=== PATIENT | female | born 1955 | race Caucasian/White ===

== ENCOUNTER → 2020-08-31 11:26 | Outpatient (CLI) | payer MEDICARE, SELFPAY ==
[2020-08-31] MEDS: COVID-19 VACC #1, MRNA(MOD) 100 MCG/0.5 ML VIAL IM (11:35)
== END ==
PROVIDERS: Visit Provider Internal Medicine
DX: Z23 Encounter for immunization (principal)
CPT/HCPCS: 0011A; 91301

== ENCOUNTER → 2020-09-28 12:26 | Outpatient (CLI) | payer MEDICARE, SELFPAY ==
[2020-09-28] MEDS: COVID-19 VACC #2, MRNA(MOD) 100 MCG/0.5 ML VIAL IM (12:29)
== END ==
PROVIDERS: Visit Provider Internal Medicine
DX: Z23 Encounter for immunization (principal)
CPT/HCPCS: 0012A; 91301

== ENCOUNTER → 2020-12-27 09:41 | Outpatient (CLI) | payer OTHER, SELFPAY | PROVIDERS: PCP Student in an Organized Health Care Education/Training Program; Referring Provider Student in an Organized Health Care Education/Training Program; Visit Provider Student in an Organized Health Care Education/Training Program | DX: M81.0 Age-related osteoporosis without current pathological fracture (principal); Z13.820 Encounter for screening for osteoporosis; Z78.0 Asymptomatic menopausal state; Z82.62 Family history of osteoporosis | CPT/HCPCS: 77080 ==

== ENCOUNTER → 2022-01-25 14:16 | Outpatient (CLI) | payer OTHER, SELFPAY | PROVIDERS: PCP Student in an Organized Health Care Education/Training Program; Visit Provider Nurse Practitioner Family | DX: N89.8 Other specified noninflammatory disorders of vagina (principal); R30.0 Dysuria | CPT/HCPCS: 87086; 87210 ==

== ENCOUNTER → 2022-03-20 18:45 | Outpatient (CLI) | payer OTHER, SELFPAY | PROVIDERS: PCP Student in an Organized Health Care Education/Training Program; Visit Provider Nurse Practitioner Family | DX: R30.0 Dysuria (principal) | CPT/HCPCS: 87077; 87086; 87186 ==

== ENCOUNTER → 2023-04-23 10:28 | Outpatient (CLI) | payer OTHER, SELFPAY ==
--- NOTE | 2023-04-23 | DI.RAD.S_ITS ---
Bone Density Report Name: BRUNO DUPREE Age: 67 Sex: Female Ethnicity: White Date of : 1955 Indication: postmenopausal osteoporosis; monitoring treatment; Referring Provider: ELIZABETH ZUNIGA Study: Bone densitometry was performed. Exam Date: April 23, 2023 Accession number: [id number] Bone Density: Region BMD T-score Z-score Classification AP Spine(L1, L2, L4) 1.025 -0.1 1.9 Normal Femoral Neck (Left) 0.561 -2.6 -0.9 Osteoporosis Total Hip (Left) 0.711 -1.9 -0.5 Osteopenia Femoral Neck (Right) 0.540 -2.8 -1.1 Osteoporosis Total Hip (Right) 0.703 -2.0 -0.5 Osteopenia Total Hip Mean 0.707 -2.0 -0.5 Osteopenia World Health Organization criteria for BMD impression classify patients as: Normal (T-score at or above -1.0), Osteopenia (T-score between -1.0 and -2.5), or Osteoporosis (T-score at or below -2.5). 10-year Fracture Risk: FRAX not reported because: Some T-score for Spine Total or Hip Total or Femoral Neck at or below -2.5 Treated for osteoporosis Previous Exams: -- Region Exam Age BMD T-score BMD Change BMD Change Date g/cm2 vs Baseline vs Previous -- AP Spine (L1-L2,L4) 04/23/2023 67 1.025 -0.1 0.103 (11.2%)# 0.103 (11.2%)# 12/27/2020 65 0.922 -1.0 Total Hip(Left) 04/23/2023 67 0.711 -1.9 0.085 (13.6%)# 0.085 (13.6%)# 12/27/2020 65 0.626 -2.6 Total Hip(Right) 04/23/2023 67 0.703 -2.0 0.095 (15.5%)# 0.095 (15.5%)# 12/27/2020 65 0.609 -2.7 -- *Denotes significance at 95% confidence level, LSC for AP Spine = 0.022 g/cm2, LSC for Total Hip = 0.027 g/cm2 # Denotes dissimilar scan types or analysis methods Impression: The patient has osteoporosis, based on the Right Femoral Neck T-score. No significant bone loss was observed. Discussion: PATIENT UNDER TREATMENT WITH NO SIGNIFICANT BMD LOSS SINCE LAST EXAM. In an untreated patient, BMD typically declines with age. A lack of decline or gain is usually a sign that treatment is efficacious and fracture risk is reduced. It is important to ask patients whether they are taking their medications and to encourage continued and appropriate compliance with their osteoporosis therapies to reduce fracture risk. It is also important to review their risk factors and encourage appropriate calcium and vitamin D intakes, exercise, fall prevention and other lifestyle measures. Follow-Up: Consider a repeat BMD and Vertebral Fracture Assessment (VFA) exam in 2 years or sooner if medically necessary, to reassess this patient's status. Reported by: JA GOLDBERG M.D. on 04/23/2023 11:04:00 AM.
== END ==
PROVIDERS: PCP Student in an Organized Health Care Education/Training Program; Referring Provider Student in an Organized Health Care Education/Training Program; Visit Provider Student in an Organized Health Care Education/Training Program
DX: M81.0 Age-related osteoporosis without current pathological fracture (principal); Z79.83 Long term (current) use of bisphosphonates
CPT/HCPCS: 77080

== ENCOUNTER 2024-10-01 07:03 | Emergency (ER) | payer MEDICARE, OTHER, SELFPAY ==
[2024-10-01] VITALS (10 sets, daily range): BP systolic 135–183; BP diastolic 72–89; PULSE 77–88; RESP 12–18; TEMP 36.9; O2SAT 93–99; BMI 27.3
[2024-10-01 07:50] LABS: Add Manual Diff / Slide Review NO; Basophils Absolute Auto 100 /uL (0-100); Basophils Percent Auto 0.8 % (0-2); Eosinophils Absolute Auto 100 /uL (0-450); Eosinophils Percent Auto 1.5 % (2-4); Hematocrit 43.6 % (36-46); Hemoglobin 14.7 g/dL (12.0-16.0); Lymphocytes Absolute Auto 1300 /uL (1100-4500); Lymphocytes Percent Auto 13.7 % (25-40); Mean Corpuscular HGB Conc 33.8 % (30-36); Mean Corpuscular Volume 91.8 fL (80-100); Monocytes Absolute Auto 400 /uL (0-900); Monocytes Percent Auto 3.9 % (3-14); Neutrophils Absolute Auto 7600 /uL (1500-7000); Neutrophils Percent Auto 80.1 % (50-75); Platelet Count 221 X10^3/uL (150-400); Red Blood Cell Count 4.75 X10^6/uL (4.0-5.2); Red Cell Distribution Width 12.8 % (11.6-14.8); White Blood Cell Count 9.5 X10^3/uL (4.5-11.0)
[2024-10-01 07:54] LABS: Alanine Aminotransferase 33 IU/L (<35); Albumin 4.7 g/dL (3.5-5.0); Albumin Globulin Ratio 1.6 (1.0-2.8); Alkaline Phosphatase 113 U/L (38-126); Aspartate Aminotransferase 35 IU/L (14-36); BUN Creatinine Ratio 23.2 (6-22); Bilirubin Total 0.7 mg/dL (0.2-1.3); Blood Urea Nitrogen 16 mg/dL (7-17); Calcium 10.2 mg/dL (8.4-10.2); Carbon Dioxide 25 mmol/L (22-32); Chloride 105 mmol/L (98-107); Estimated Glomerular Filt Rate > 60 mL/min (>60); Glucose 131 mg/dL (80-110); HEMOLYSIS < 15 (0-50); Lipase 299 U/L (23-300); Potassium 3.8 mmol/L (3.4-5.1); Sodium 138 mmol/L (137-145); Total Protein 7.7 g/dL (6.3-8.2)
--- NOTE | 2024-10-01 08:04 | PC.NURSE ---
declined nausea meds at this time
--- NOTE | 2024-10-01 08:20 | EKG_ITS ---
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
--- NOTE | 2024-10-01 08:34 | ED_ITS ---
HPI - Abdominal Pain General Chief Complaint: Abdominal Pain Stated Complaint: Severe abdominal pain since 3:30am Time Seen by Provider: 10/01/24 08:03 History of Present Illness HPI narrative: Patient is a 69-year-old female history of osteoporosis presenting today with lower abdominal pain. She reports it woke her up abruptly from her sleep at 3:30 a.m. this morning. She feels nauseous, reports he threw up once in the ED. No fever or chills. No painful frequent urination. Reports that she had a colonoscopy about 7 years ago which showed diverticulosis. But she has never had an episode of diverticulitis. She was passing gas. She has had 2 C sections but no other abdominal surgeries Related Data Home Medications Medication Instructions Recorded Confirmed alendronate 70 mg tablet (Fosamax) 70 mg PO QWEEK 01/25/22 03/20/22 estradiol 0.01% (0.1 mg/gram) 1 appful vaginal DAILY 01/25/22 03/20/22 vaginal cream (Estrace) Previous Rx's Medication Instructions Recorded phenazopyridine 200 mg tablet 200 mg PO TID 6 doses #6 tabs 03/20/22 (Pyridium) cefdinir 300 mg capsule 300 mg PO Q12H #14 caps 10/01/24 hydrocodone 5 mg-acetaminophen 325 1 tab PO Q6H PRN pain #10 tabs 10/01/24 mg tablet ondansetron 4 mg disintegrating 4 mg PO Q8H PRN nausea and 10/01/24 tablet vomiting #10 tabs tamsulosin 0.4 mg capsule (Flomax) 0.4 mg PO DAILY #7 caps 10/01/24 Allergies Allergy/AdvReac Type Severity Reaction Status Date / Time oxycodone Allergy Mild Rash Verified 03/20/22 18:49 Patient History Social History Smoking Status: Never smoker Smoking Status: Never smoker Exam Initial Vital Signs Initial Vital Signs: Vital Signs Temperature 98.5 F 10/01/24 07:24 Pulse Rate 79 10/01/24 07:24 Respiratory Rate 16 10/01/24 07:24 Blood Pressure 183/86 H 10/01/24 07:24 Pulse Oximetry 98 10/01/24 07:24 Oxygen Delivery Method Room Air 10/01/24 07:24 GENERAL: Alert 69-year-old female and in [no acute] distress. HEENT: Head atraumatic,EOMI, pupils reactive, face symmetric, [moist] mucous membranes CARDIOVASCULAR: Regular rate and rhythm without murmurs, rubs or gallops. RESPIRATORY: Breath sounds equal bilaterally, no wheezes rales or rhonchi. ABDOMEN: Soft, mild lower abdominal discomfort no guarding no rebound no distention : No CVA tenderness EXTREMITIES: Normal range of motion, no clubbing or edema. Neurovascularly intact NEUROLOGICAL: Alert and oriented x4.Normal gait and speech. SKIN: Warm, dry, no laceration, no petechiae, no rashes or lesions. Course Orders Ordered: ED Orders 10/01/24 07:28 EKG-12 Lead Stat 10/01/24 07:35 Complete Blood Count AUTO DIFF Stat Comprehensive Metabolic Panel Stat Lipase Stat 10/01/24 08:12 Urine Culture Stat Urine Microscopic Stat 10/01/24 08:39 CT abdomen pelvis w con Stat Discontinued Medications Acetaminophen (Acetaminophen 325 Mg Tablet) 650 mg PO NOW ONE Stop: 10/01/24 10:35 Last Admin: 10/01/24 10:38 Dose: 650 mg Documented By: Ceftriaxone Sodium 1,000 mg/ (Sodium Chloride) 100 mls @ 200 mls/hr IV NOW ONE Stop: 10/01/24 10:22 Last Infusion: 10/01/24 11:22 Dose: Infused Documented By: Admin: 10/01/24 10:35 Dose: 200 mls/hr Documented By: Ketorolac Tromethamine (Ketorolac 30 Mg/Ml Vial) 15 mg IV NOW ONE Stop: 10/01/24 08:40 Last Admin: 10/01/24 08:48 Dose: 15 mg Documented By: GUDELIA Ondansetron HCl (Ondansetron 4 Mg/2 Ml Inj) 4 mg IV NOW PRN PRN Reason: Nausea And Vomiting Last Admin: 10/01/24 08:50 Dose: 4 mg Documented By: GUDELIA Ondansetron HCl (Ondansetron 4 Mg Odt) 4 mg PO NOW PRN PRN Reason: Nausea And Vomiting Vital Signs Vital signs: Vital Signs - 8 hr 10/01/24 08:00 10/01/24 08:00 10/01/24 08:39 Pulse Rate 79 Respiratory Rate 18 Blood Pressure 157/77 H 167/81 H Pulse Oximetry 99 Oxygen Delivery Method Room Air 10/01/24 08:39 10/01/24 09:05 10/01/24 09:06 Pulse Rate 79 81 80 Respiratory Rate 14 12 Blood Pressure Pulse Oximetry 96 98 Oxygen Delivery Method 10/01/24 09:06 10/01/24 09:30 10/01/24 09:30 Pulse Rate 81 Respiratory Rate 13 Blood Pressure 161/77 H 150/77 H Pulse Oximetry 93 Oxygen Delivery Method 10/01/24 10:00 10/01/24 10:00 10/01/24 10:30 Pulse Rate 80 81 Respiratory Rate 14 13 Blood Pressure 146/72 H Pulse Oximetry 97 96 Oxygen Delivery Method 10/01/24 10:30 10/01/24 11:00 10/01/24 11:00 Pulse Rate 88 Respiratory Rate 14 Blood Pressure 145/81 H 135/74 Pulse Oximetry 95 Oxygen Delivery Method MDM - Abdominal Pain Lab Data 10/01/24 07:35 10/01/24 07:35 Labs: Lab Results 10/01/24 10/01/24 Range/Units 07:35 08:12 WBC 9.5 (4.5-11.0) X10^3/uL RBC 4.75 (4.0-5.2) X10^6/uL Hgb 14.7 (12.0-16.0) g/dL Hct 43.6 (36-46) % MCV 91.8 (80-100) fL MCH 31.0 (26-34) PG MCHC 33.8 (30-36) % RDW 12.8 (11.6-14.8) % Plt Count 221 (150-400) X10^3/uL Neut % (Auto) 80.1 H (50-75) % Lymph % (Auto) 13.7 L (25-40) % [place] % (Auto) 3.9 (3-14) % Eos % (Auto) 1.5 L (2-4) % Baso % (Auto) 0.8 (0-2) % Neut # (Auto) 7600 H (3272-6242) /uL Lymph # (Auto) 1300 (4844-9975) /uL [place] # (Auto) 400 (0-900) /uL Eos # (Auto) 100 (0-450) /uL Baso # (Auto) 100 (0-100) /uL Sodium 138 (137-145) mmol/L Potassium 3.8 (3.4-5.1) mmol/L Chloride 105 (98-107) mmol/L Carbon Dioxide 25 (22-32) mmol/L BUN 16 (7-17) mg/dL Creatinine 0.69 (0.52-1.04) mg/dL Estimated GFR > 60 (>60) mL/min BUN/Creatinine Ratio 23.2 H (6-22) Glucose 131 H (80-110) mg/dL Calcium 10.2 (8.4-10.2) mg/dL Total Bilirubin 0.7 (0.2-1.3) mg/dL AST 35 (14-36) IU/L ALT 33 (<35) IU/L Alkaline Phosphatase 113 (38-126) U/L Total Protein 7.7 (6.3-8.2) g/dL Albumin 4.7 (3.5-5.0) g/dL Globulin 3.0 (1.7-4.1) g/dL Albumin/Globulin Ratio 1.6 (1.0-2.8) Lipase 299 (23-300) U/L Urine RBC >100/hpf H (0-5/HPF) Urine WBC 10-30/hpf H (0-5/HPF) Ur Squamous Epith Cells 10-30 /hpf H (0-5/HPF) Urine Bacteria Moderate (10-30) H (None) Ur Culture Indicated? Specimen cultured Vol Urine Centrifuged 10ml (spun) Point of care testing: Urine Dip Bedside Urine Glucose Negative Bedside Urine Bilirubin - Negative Bedside Urine Ketone +/- 5 Urine Specific [place] 1.025 Bedside Urine Occult Blood +++ Bedside Urine pH 6.0 Bedside Urine Protein +/- 15 Bedside Urine Urobilinogen - Negative Bedside Urine Nitrite - Negative Bedside Urine Leukocytes +++ 500 Esterase ECG Data Attestation: I personally reviewed and interpreted this ECG as follows: Prior ECG tracings: not available for review Interpretation: Normal sinus rhythm rate 66 [place] interval 158 QRS [address] changes MDM Narrative Medical decision making narrative: Patient is a 69-year-old female presenting today with lower abdominal discomfort. Started abruptly This evening. Blood work has been reviewed she has been leukocytosis no anemia, electrolytes within normal limits no elevation of bilirubin or liver enzymes or lipase Urinalysis is positive for hematuria and leukocytes CT shows 6 mm obstructing stone within the left mid ureter associated with left hydroureter and hydronephrosis perinephric fat stranding Urinalysis is positive for squamous cell leukocytes hematuria, bacteria negative for nitrates Patient initially presenting with some lower abdominal discomfort but now in the ED it is more on the left side. She was found to have left nephrolithiasis. She has no leukocytosis or fever. She was not a diabetic. Urine is questionable for UTI but does appear to be a dirty catch nonetheless she was given 1 dose of IV Rocephin here in the ED. She was put on antibiotics. Instructed to follow up with Urology and strict return precautions. Differential diagnosis nephrolithiasis diverticulitis bowel obstruction Discharge Plan Departure Patient Disposition: Home Clinical Impression: Kidney stones, Acute UTI Instructions: DI for Kidney Stones Activity Restrictions/Additional Instructions: *You have been diagnosed with kidney stone and UTI *What to do: At this time you have a 6 mm stone on the left side. You may or may not pass it. He was strongly recommended that you follow-up with urology. Please call them on Thursday to schedule an appointment. *Continue to take medications as directed Motrin 600 mg every 6 hours for [id number] pain Cefdinir 300 mg twice a day for 7 [place] 1 tablet every 6 hours if needed for severe pain Zofran 4 mg every 8 hours for nausea vomiting Flomax 0.4 mg daily to help pass kidney stone *Follow up with your primary care provider in 2-3 days or call [phone] Miller or Dr. Rodas, call Thursday morning *Return to ER if you should have persistent vomiting persistent pain fever greater than 100.4 or any new, worsening or concerning symptoms CONTROLLED SUBSTANCE DISCHARGE (Narcotoic/benzodiazepine/Flexeril/Phenergan) 1. You have been prescribed narcotic medications, it does have acetaminophen/Tylenol/paracetamol in it, DO NOT TAKE MORE THAN 4,00mg in 24 hours of Tylenol. TRAMADOL DOES NOT CONTAIN TYLENOL 2. Please understand that we cannot provide further refills of narcotics, benzodiazepines or controlled substances through the ED and her pain management will need to be through your provider. 3. While on these medications you cannot drive or operate heavy machinery. 4. You cannot sign legal documents or perform any duties such as this. 5. As long as you're taking opiate pain medications he should also be taking a stool softener such as Colace, Dulcolax, MiraLAX or prune juice, to help avoid constipation. Prescriptions: New hydrocodone-acetaminophen 5-325 mg tablet 1 tab PO Q6H PRN (Reason: pain) Qty: 10 0RF tamsulosin [Flomax] 0.4 mg capsule 0.4 mg PO DAILY Qty: 7 0RF Rx Instructions: administer 30 minutes after same meal each day; swallow whole with liquid; do not crush/chew/dissolve/open ondansetron 4 mg tablet,disintegrating 4 mg PO Q8H PRN (Reason: nausea and vomiting) Qty: 10 0RF cefdinir 300 mg capsule 300 mg PO Q12H Qty: 14 0RF No Action estradiol [Estrace] 0.01 % (0.1 mg/gram) cream 1 appful vaginal DAILY Rx Instructions: for 14 days alendronate [Fosamax] 70 mg tablet 70 mg PO QWEEK phenazopyridine [Pyridium] 200 mg tablet 200 mg PO TID 0 Days Qty: 6 0RF Referrals: Zena Maradiaga MD [Primary Care Provider] - Stand Alone Forms: Patient Portal/API/Survey
[2024-10-01 08:39] LABS: Bacteria Urine Moderate (10-30); Culture Indicated Urine Specimen Cultured; RBC Urine >100/HPF (0-5/HPF); Squamous Epithelial Cell Urine 10-30 /HPF (0-5/HPF); Urine Volume 10mL (spun); WBC Urine 10-30/HPF (0-5/HPF)
--- NOTE | 2024-10-01 08:39 | DI.CT.S_ITS ---
PROCEDURE: CT ABDOMEN PELVIS W CON INDICATIONS: lower ab pain and nausea TECHNIQUE: After the administration of intravenous contrast, axial sections acquired from the lung bases to the pubic symphysis. Coronal and sagittal reformats were performed. For radiation dose reduction, the following was used: automated exposure control, adjustment of mA and/or kV according to patient size. COMPARISON: None. FINDINGS: Image quality: Diagnostic. Lower Chest: A small hiatal hernia is incidentally noted. ABDOMEN: Liver: No solid mass. Simple liver cysts are seen. Gallbladder: No radiopaque gallstones or wall thickening. Biliary ducts: No biliary dilation. Pancreas: No ductal dilation. Spleen: Size is within normal limits. Adrenal Glands: No adrenal nodules. Kidneys and Ureters: There is an obstructing stone seen within the left mid ureter, as on series 2 image 72 and on series 3, image 44, measuring 6 mm craniocaudal and measuring 450 Hounsfield units. There is associated moderate to severe left-sided hydronephrosis and moderate hydroureter. There is a delayed nephrogram seen on the left. Moderate left perinephric fat stranding can be seen. Several nonobstructing kidney stones are seen, measuring up to 4 mm on the right and measuring up to 10 mm and 800 Hounsfield units on the left. Stomach and Bowel: Normal colonic caliber, without significant wall thickening. No dilated loops of small bowel are seen. A normal appendix is noted. Peritoneum: No abnormal intraperitoneal fluid. No free air. Ventral Wall: No significant ventral hernia. Abdominal Nodes: No retroperitoneal or mesenteric adenopathy by size criteria. Vessels: Aorta and inferior vena cava are normal in size. PELVIS: Pelvic Organs: No adnexal masses are seen on either side. Bladder: Moderate generalized bladder wall thickening can be seen. The bladder is incompletely distended. Pelvic Nodes: No enlarged lymph nodes. Miscellaneous: No inguinal hernias are seen. Bones: No aggressive osseous abnormality. There is a remote L1 compression deformity. Mild retrolisthesis can be seen at L1-L2. Mild anterolisthesis is seen at L4-L5. There is at least moderate disc space narrowing seen at L5-S1. Lower lumbar spine facet arthropathy is seen. IMPRESSION: 6 mm obstructing stone within the left mid ureter, with associated left-sided hydroureter, hydronephrosis, perinephric fat stranding, and a delayed nephrogram. Nonobstructing bilateral renal stones are seen. There is moderate generalized bladder wall thickening. Please consider superimposed UTI. Normal appendix. Additional findings: Small hiatal hernia Remote L1 compression deformity Multifocal lumbar spine degenerative change Dictated by: Gopi Botello M.D. on 10/01/2024 at 8:38 Approved by: Gopi Botello M.D. on 10/01/2024 at 8:42
[2024-10-01] MEDS: KETOROLAC 30 MG/ML VIAL 15 MG IV (08:48)
[2024-10-01] MEDS: ONDANSETRON 4 MG/2 ML INJ IV (08:50)
--- NOTE | 2024-10-01 09:00 | PC.NURSE ---
Assumed cares from LUBA [place]. Pt lying back in [facility]. Discussed plan of care, understands.
[2024-10-01] MEDS: cefTRIAXone 1,000 MG in SODIUM CHLORIDE 0.9% 100 ML 200 MG IV (10:35)
[2024-10-01] MEDS: ACETAMINOPHEN 325 MG TABLET 650 MG PO (10:38)
== END 2024-10-01 11:24 | disposition home or self-care (01) ==
PROVIDERS: Emergency Provider Emergency Medicine; PCP Student in an Organized Health Care Education/Training Program
DX: N20.0 Calculus of kidney (principal); N39.0 Urinary tract infection, site not specified
CPT/HCPCS: 36415; 74177; 80053; 81003; 81015; 83690; 85025; 87086; 93005; 93010; 96365; 96375; 99284; J0696; J1885; J2405; Q9967

== ENCOUNTER 2024-10-02 11:50 | Emergency (ER) | payer MEDICARE, OTHER, SELFPAY ==
[2024-10-02] VITALS (19 sets, daily range): BP systolic 110–142; BP diastolic 51–77; PULSE 83–120; RESP 11–24; TEMP 37–39.5; O2SAT 93–99; BMI 27.3
--- NOTE | 2024-10-02 12:32 | DI.RAD.S_ITS ---
PROCEDURE: XR CHEST 1V INDICATIONS: suspected sepsis TECHNIQUE: One view of the chest was acquired. COMPARISON: None. FINDINGS AND IMPRESSION: No dense airspace disease on this single view study. No pleural effusions. Normal heart size. Degenerative osseous changes. Dictated by: Austen Lopez M.D. on 10/02/2024 at 13:15 Approved by: Austen Lopez M.D. on 10/02/2024 at 13:16
--- NOTE | 2024-10-02 12:41 | EKG_ITS ---
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
[2024-10-02 13:27] LABS: Add Manual Diff / Slide Review NO; Basophils Absolute Auto 0 /uL (0-100); Basophils Percent Auto 0.3 % (0-2); Eosinophils Absolute Auto 0 /uL (0-450); Hematocrit 39.1 % (36-46); Hemoglobin 13.3 g/dL (12.0-16.0); Lymphocytes Absolute Auto 300 /uL (1100-4500); Lymphocytes Percent Auto 2.3 % (25-40); Mean Corpuscular HGB Conc 34.2 % (30-36); Mean Corpuscular Hemoglobin 31.1 PG (26-34); Monocytes Absolute Auto 400 /uL (0-900); Monocytes Percent Auto 2.7 % (3-14); Neutrophils Absolute Auto 13800 /uL (1500-7000); Neutrophils Percent Auto 94.7 % (50-75); Platelet Count 151 X10^3/uL (150-400); Red Blood Cell Count 4.29 X10^6/uL (4.0-5.2); Red Cell Distribution Width 12.9 % (11.6-14.8); White Blood Cell Count 14.6 X10^3/uL (4.5-11.0)
[2024-10-02 13:31] LABS: Prothrombin Time 11.4 SECONDS (9.4-12.5)
[2024-10-02 13:34] LABS: PTT Partial Thromboplastin Tim 28 SECONDS (25.1-36.5)
[2024-10-02 13:36] LABS: Alanine Aminotransferase 28 IU/L (<35); Albumin 4.1 g/dL (3.5-5.0); Albumin Globulin Ratio 1.5 (1.0-2.8); Alkaline Phosphatase 90 U/L (38-126); Aspartate Aminotransferase 37 IU/L (14-36); BUN Creatinine Ratio 14.8 (6-22); Bilirubin Total 1.1 mg/dL (0.2-1.3); Blood Urea Nitrogen 18 mg/dL (7-17); Calcium 9.7 mg/dL (8.4-10.2); Carbon Dioxide 23 mmol/L (22-32); Chloride 100 mmol/L (98-107); Estimated Glomerular Filt Rate 48 mL/min (>60); Globulin 2.8 g/dL (1.7-4.1); Glucose 131 mg/dL (80-110); HEMOLYSIS < 15 (0-50); Lipase 66 U/L (23-300); Sodium 131 mmol/L (137-145); Total Protein 6.9 g/dL (6.3-8.2)
[2024-10-02] MEDS: ACETAMINOPHEN 325 MG TABLET 975 MG PO (13:38)
[2024-10-02] MEDS: SODIUM CHLORIDE 0.9% 1,000 ML 1000 ML IV (13:38)
[2024-10-02 13:45] LABS: Bacteria Urine Few (2-10); Culture Indicated Urine Cult Not Indicated; RBC Urine 5-10/HPF (0-5/HPF); Squamous Epithelial Cell Urine 1-5 /HPF (0-5/HPF); Urine Volume 10mL (spun); WBC Urine 1-5/HPF (0-5/HPF)
[2024-10-02 13:47] LABS: Lactate (Lactic Acid) 1.2 mmol/L (0.7-2.1)
[2024-10-02 13:52] LABS: Procalcitonin 7.22 ng/mL (<0.5)
--- NOTE | 2024-10-02 16:25 | ED.SEPSIS ---
HPI - Sepsis Evaluation Sepsis Screen: Meets SIRS Criteria Sepsis Infection Criteria Present: None Narrative: A 69-year-old female seen yesterday with lower abdominal pain. CT was performed with obstructive stone noted. CT report is as below. [address] [address] [address] Scan Report Signed Patient: Sil Malagon MR#: [id number] : 1955 Acct:[id number] Age/Sex: 69 / F Date of Service: 10/01/24 Loc: ED Accession Number: [id number] Procedure: CT abdomen pelvis w con Ordering Provider: Indu Vargas D.O. PROCEDURE: CT ABDOMEN PELVIS W CON INDICATIONS: lower ab pain and nausea TECHNIQUE: After the administration of intravenous contrast, axial sections acquired from the lung bases to the pubic symphysis. Coronal and sagittal reformats were performed. For radiation dose reduction, the following was used: automated exposure control, adjustment of mA and/or kV according to patient size. COMPARISON: None. FINDINGS: Image quality: Diagnostic. Lower Chest: A small hiatal hernia is incidentally noted. ABDOMEN: Liver: No solid mass. Simple liver cysts are seen. Gallbladder: No radiopaque gallstones or wall thickening. Biliary ducts: No biliary dilation. Pancreas: No ductal dilation. Spleen: Size is within normal limits. Adrenal Glands: No adrenal nodules. Kidneys and Ureters: There is an obstructing stone seen within the left mid ureter, as on series 2 image 72 and on series 3, image 44, measuring 6 mm craniocaudal and measuring 450 Hounsfield units. There is associated moderate to severe left-sided hydronephrosis and moderate hydroureter. There is a delayed nephrogram seen on the left. Moderate left perinephric fat stranding can be seen. Several nonobstructing kidney stones are seen, measuring up to 4 mm on the right and measuring up to 10 mm and 800 Hounsfield units on the left. Stomach and Bowel: Normal colonic caliber, without significant wall thickening. No dilated loops of small bowel are seen. A normal appendix is noted. Peritoneum: No abnormal intraperitoneal fluid. No free air. Ventral Wall: No significant ventral hernia. Abdominal Nodes: No retroperitoneal or mesenteric adenopathy by size criteria. Vessels: Aorta and inferior vena cava are normal in size. PELVIS: Pelvic Organs: No adnexal masses are seen on either side. Bladder: Moderate generalized bladder wall thickening can be seen. The bladder is incompletely distended. Pelvic Nodes: No enlarged lymph nodes. Miscellaneous: No inguinal hernias are seen. Bones: No aggressive osseous abnormality. There is a remote L1 compression deformity. Mild retrolisthesis can be seen at L1-L2. Mild anterolisthesis is seen at L4-L5. There is at least moderate disc space narrowing seen at L5-S1. Lower lumbar spine facet arthropathy is seen. IMPRESSION: 6 mm obstructing stone within the left mid ureter, with associated left-sided hydroureter, hydronephrosis, perinephric fat stranding, and a delayed nephrogram. Nonobstructing bilateral renal stones are seen. There is moderate generalized bladder wall thickening. Please consider superimposed UTI. Normal appendix. Additional findings: Small hiatal hernia Remote L1 compression deformity Multifocal lumbar spine degenerative change Dictated by: Gopi Botello M.D. on 10/01/2024 at 8:38 Approved by: Gopi Botello M.D. on 10/01/2024 at 8:42 Patient History Social History Smoking Status: Never smoker Smoking Status: Never smoker Exam Initial Vital Signs Initial Vital Signs: Vital Signs Temperature 103.1 F H 10/02/24 12:23 Pulse Rate 120 H 10/02/24 12:23 Respiratory Rate 19 10/02/24 12:23 Blood Pressure 131/75 10/02/24 12:23 Pulse Oximetry 97 10/02/24 12:23 Oxygen Delivery Method Room Air 10/02/24 12:23 Course Orders Ordered: ED Orders 10/02/24 12:32 XR chest 1V Stat EKG-12 Lead Stat RT Consult Eval and Treat NOW 10/02/24 13:15 Complete Blood Count AUTO DIFF Stat Comprehensive Metabolic Panel Stat Lactate (Lactic Acid) Stat Lipase Stat PTT Partial Thromboplastin Celest[place] Stat Procalcitonin Stat Prothrombin Time INR Stat 10/02/24 13:22 Blood Culture Stat Urine Microscopic Stat Ondansetron HCl (Ondansetron 4 Mg/2 Ml Inj) 4 mg IV NOW PRN PRN Reason: Nausea And Vomiting Ondansetron HCl (Ondansetron 4 Mg Odt) 4 mg SL NOW PRN PRN Reason: Nausea And Vomiting Discontinued Medications Acetaminophen (Acetaminophen 325 Mg Tablet) 975 mg PO NOW ONE Stop: 02/23/25 12:34 Last Admin: 10/02/24 13:38 Dose: 975 mg Documented By: Acetaminophen (Acetaminophen 650 Mg Supp) 650 mg NV NOW ONE Stop: 10/02/24 12:34 Last Admin: 10/02/24 13:39 Dose: Not Given Documented By: Acetaminophen (Acetaminophen 325 Mg Tablet) 650 mg PO NOW ONE Stop: 10/02/24 16:24 Hydromorphone HCl (Hydromorphone 0.5 Mg Inj) 0.5 mg IV NOW ONE Stop: 10/02/24 16:24 Sodium Chloride (Normal Saline 0.9%) 1,000 mls @ 1,000 mls/hr IV BOLUS ONE Stop: 10/02/24 13:31 Last Infusion: 10/02/24 14:26 Dose: Infused Documented By: Infusion: 10/02/24 14:26 Dose: 0 mls/hr Documented By: Admin: 10/02/24 13:38 Dose: 1,000 mls/hr Documented By: Ceftriaxone Sodium 2,000 mg/ (Sodium Chloride) 100 mls @ 200 mls/hr IV NOW ONE Stop: 10/02/24 16:24 Ibuprofen (Ibuprofen 400 Mg Tablet) 800 mg PO NOW ONE Stop: 10/02/24 12:34 Last Admin: 10/02/24 15:26 Dose: Not Given Documented By: Vital Signs Vital signs: Vital Signs - 8 hr 10/02/24 12:23 10/02/24 13:38 10/02/24 14:00 Temperature 103.1 F H 103 F H 101.1 F H Pulse Rate 120 H 110 H Respiratory Rate 19 Blood Pressure 131/75 131/68 Pulse Oximetry 97 95 Oxygen Delivery Method Room Air Room Air 10/02/24 14:26 10/02/24 14:30 10/02/24 15:33 Temperature 101.1 F H Pulse Rate 107 H 99 H Respiratory Rate 22 17 Blood Pressure 111/51 L 116/59 L Pulse Oximetry 93 93 Oxygen Delivery Method Room Air Room Air 10/02/24 16:21 10/02/24 16:24 Temperature 98.6 F Pulse Rate 100 H Respiratory Rate 18 Blood Pressure 110/62 Pulse Oximetry 94 Oxygen Delivery Method Room Air Sepsis Evaluation (ED) Triage Screening Sepsis Screen: Meets SIRS Criteria Level 1 - Infection Sepsis Infection Criteria Present: None MDM - Sepsis Lab Data 10/02/24 13:15 10/02/24 13:15 Labs: Lab Results 10/02/24 10/02/24 Range/Units 13:15 13:22 WBC 14.6 H D (4.5-11.0) X10^3/uL RBC 4.29 (4.0-5.2) X10^6/uL Hgb 13.3 (12.0-16.0) g/dL Hct 39.1 (36-46) % MCV 91.0 (80-100) fL MCH 31.1 (26-34) PG MCHC 34.2 (30-36) % RDW 12.9 (11.6-14.8) % Plt Count 151 (150-400) X10^3/uL Neut % (Auto) 94.7 H (50-75) % Lymph % (Auto) 2.3 L (25-40) % [place] % (Auto) 2.7 L (3-14) % Eos % (Auto) 0.0 L (2-4) % Baso % (Auto) 0.3 (0-2) % Neut # (Auto) 09882 H (0013-9792) /uL Lymph # (Auto) 300 L (1942-8068) /uL [place] # (Auto) 400 (0-900) /uL Eos # (Auto) 0 (0-450) /uL Baso # (Auto) 0 (0-100) /uL PT 11.4 (9.4-12.5) SECONDS INR 1.0 (0.9-1.3) APTT 28 (25.1-36.5) SECONDS Sodium 131 L (137-145) mmol/L Potassium 4.0 (3.4-5.1) mmol/L Chloride 100 (98-107) mmol/L Carbon Dioxide 23 (22-32) mmol/L BUN 18 H (7-17) mg/dL Creatinine 1.22 H (0.52-1.04) mg/dL Estimated GFR 48 L (>60) mL/min BUN/Creatinine Ratio 14.8 (6-22) Glucose 131 H (80-110) mg/dL Lactate 1.2 (0.7-2.1) mmol/L Calcium 9.7 (8.4-10.2) mg/dL Total Bilirubin 1.1 (0.2-1.3) mg/dL AST 37 H (14-36) IU/L ALT 28 (<35) IU/L Alkaline Phosphatase 90 (38-126) U/L Total Protein 6.9 (6.3-8.2) g/dL Albumin 4.1 (3.5-5.0) g/dL Globulin 2.8 (1.7-4.1) g/dL Albumin/Globulin Ratio 1.5 (1.0-2.8) Lipase 66 D (23-300) U/L Procalcitonin 7.22 H (<0.5) ng/mL Urine RBC 5-10/hpf H (0-5/HPF) Urine WBC 1-5/hpf (0-5/HPF) Ur Squamous Epith Cells 1-5 /hpf D (0-5/HPF) Urine Bacteria Few (2-10) H (None) Ur Culture Indicated? Cult not indicated Vol Urine Centrifuged 10ml (spun) Urine Dip Bedside Urine Glucose Negative Bedside Urine Bilirubin - Negative Bedside Urine Ketone ++ 40 Urine Specific [place] 1.020 Bedside Urine Occult Blood +++ Bedside Urine pH 6.0 Bedside Urine Protein + 30 Bedside Urine Urobilinogen - Negative Bedside Urine Nitrite - Negative Bedside Urine Leukocytes - Negative Esterase Discharge Plan Departure Prescriptions: No Action estradiol [Estrace] 0.01 % (0.1 mg/gram) cream 1 appful vaginal DAILY Rx Instructions: for 14 days alendronate [Fosamax] 70 mg tablet 70 mg PO QWEEK phenazopyridine [Pyridium] 200 mg tablet 200 mg PO TID 0 Days Qty: 6 0RF hydrocodone-acetaminophen 5-325 mg tablet 1 tab PO Q6H PRN (Reason: pain) Qty: 10 0RF tamsulosin [Flomax] 0.4 mg capsule 0.4 mg PO DAILY Qty: 7 0RF Rx Instructions: administer 30 minutes after same meal each day; swallow whole with liquid; do not crush/chew/dissolve/open ondansetron 4 mg tablet,disintegrating 4 mg PO Q8H PRN (Reason: nausea and vomiting) Qty: 10 0RF cefdinir 300 mg capsule 300 mg PO Q12H Qty: 14 0RF Referrals: Zena Maradiaga MD [Primary Care Provider] -
--- NOTE | 2024-10-02 16:28 | W.ED.SEPSIS ---
HPI - Sepsis <Joe Peoples MD - Last Filed: 10/02/24 16:41> General Chief Complaint: Urogenital-Female Evaluation Sepsis Screen: Meets SIRS Criteria Sepsis Infection Criteria Present: None Narrative: This 69-year-old female presenting with lower abdominal pain left greater than right headaches and fever. She was seen in the emergency department yesterday with lower abdominal pain and CT showed obstructing left ureteral stone. Urinalysis was suggestive of infection, she was given ceftriaxone was started on cefdinir. She returns today with the above symptoms. She is not having vomiting she has had some nausea. Noted a fever onset last night. CT from yesterday results are below. 6 mm obstructing stone within the left mid ureter, with associated left-sided hydroureter, hydronephrosis, perinephric fat stranding, and a delayed nephrogram. Nonobstructing bilateral renal stones are seen. There is moderate generalized bladder wall thickening. Please consider superimposed UTI. Normal appendix. Patient History <Joe Peoples MD - Last Filed: 10/02/24 16:41> Social History Smoking Status: Never smoker Smoking Status: Never smoker Exam <Joe Peoples MD - Last Filed: 10/02/24 16:41> Narrative Exam Narrative: Febrile and ill-appearing Initial Vital Signs Initial Vital Signs: Vital Signs Temperature 103.1 F H 10/02/24 12:23 Pulse Rate 120 H 10/02/24 12:23 Respiratory Rate 19 10/02/24 12:23 Blood Pressure 131/75 10/02/24 12:23 Pulse Oximetry 97 10/02/24 12:23 Oxygen Delivery Method Room Air 10/02/24 12:23 [facility] Other: Normocephalic atraumatic oral mucosa is moist Neck Other: Supple Resp Other: Lungs are clear speaking in full sentences Cardio Other: Tachycardic, regular rhythm and rate with a systolic murmur GI Other: Abdomen is soft, mild left lower quadrant left upper quadrant tenderness no guarding or rebound Neuro Other: Alert and oriented <Vaughn Post DO - Last Filed: 10/03/24 00:16> Initial Vital Signs Initial Vital Signs: Vital Signs Temperature 103.1 F H 10/02/24 12:23 Pulse Rate 120 H 10/02/24 12:23 Respiratory Rate 19 10/02/24 12:23 Blood Pressure 131/75 10/02/24 12:23 Pulse Oximetry 97 10/02/24 12:23 Oxygen Delivery Method Room Air 10/02/24 12:23 Course <Joe Peoples MD - Last Filed: 10/02/24 16:41> Orders Ordered: Discontinued Medications Acetaminophen (Acetaminophen 325 Mg Tablet) 975 mg PO NOW ONE Stop: 10/02/24 12:34 Last Admin: 10/02/24 13:38 Dose: 975 mg Documented By: Acetaminophen (Acetaminophen 650 Mg Supp) 650 mg DE NOW ONE Stop: 10/02/24 12:34 Last Admin: 10/02/24 13:39 Dose: Not Given Documented By: Acetaminophen (Acetaminophen 325 Mg Tablet) 650 mg PO NOW ONE Stop: 10/02/24 16:24 Last Admin: 10/02/24 16:31 Dose: 650 mg Documented By: Hydromorphone HCl (Hydromorphone 0.5 Mg Inj) 0.5 mg IV NOW ONE Stop: 10/02/24 16:24 Last Admin: 10/02/24 17:20 Dose: Not Given Documented By: Sodium Chloride (Normal Saline 0.9%) 1,000 mls @ 1,000 mls/hr IV BOLUS ONE Stop: 10/02/24 13:31 Last Infusion: 10/02/24 14:26 Dose: Infused Documented By: Infusion: 10/02/24 14:26 Dose: 0 mls/hr Documented By: Admin: 10/02/24 13:38 Dose: 1,000 mls/hr Documented By: Ceftriaxone Sodium 2,000 mg/ (Sodium Chloride) 100 mls @ 200 mls/hr IV NOW ONE Stop: 10/02/24 16:24 Last Infusion: 10/02/24 17:19 Dose: Infused Documented By: Admin: 10/02/24 16:30 Dose: 200 mls/hr Documented By: Ibuprofen (Ibuprofen 400 Mg Tablet) 800 mg PO NOW ONE Stop: 10/02/24 12:34 Last Admin: 10/02/24 15:26 Dose: Not Given Documented By: Morphine Sulfate (Morphine 4 Mg/Ml Inj) 4 mg IV NOW ONE Stop: 10/02/24 22:02 Last Admin: 10/02/24 22:09 Dose: 4 mg Documented By: HAKAN Ondansetron HCl (Ondansetron 4 Mg/2 Ml Inj) 4 mg IV NOW PRN PRN Reason: Nausea And Vomiting Last Admin: 10/02/24 22:50 Dose: 4 mg Documented By: HAKAN Ondansetron HCl (Ondansetron 4 Mg Odt) 4 mg SL NOW PRN PRN Reason: Nausea And Vomiting Consultations Consultation #1: At 4:40 p.m., discussed with Urology, Dr. Tsai at the [facility]. She agrees that the patient needs urologic intervention. We will attempt to find a facility with that capability and re-contact the [facility] if we are unsuccessful Vital Signs Vital signs: Vital Signs - 8 hr 10/02/24 16:21 10/02/24 16:24 10/02/24 18:10 Temperature 98.6 F Pulse Rate 100 H 87 Respiratory Rate 18 17 Blood Pressure 110/62 124/68 Pulse Oximetry 94 95 Oxygen Delivery Method Room Air 10/02/24 19:14 10/02/24 19:30 10/02/24 19:39 Temperature Pulse Rate 86 89 91 H Respiratory Rate 16 16 Blood Pressure Pulse Oximetry 95 94 97 Oxygen Delivery Method 10/02/24 19:39 10/02/24 19:54 10/02/24 20:00 Temperature 98.6 F Pulse Rate 84 Respiratory Rate 16 Blood Pressure 127/62 Pulse Oximetry 97 Oxygen Delivery Method 10/02/24 20:00 10/02/24 20:30 10/02/24 21:00 Temperature Pulse Rate 86 86 Respiratory Rate 21 24 Blood Pressure 127/66 Pulse Oximetry 99 98 Oxygen Delivery Method 10/02/24 21:30 10/02/24 22:00 10/02/24 22:00 Temperature Pulse Rate 83 86 Respiratory Rate 11 L 17 Blood Pressure 142/77 H Pulse Oximetry 99 98 Oxygen Delivery Method 10/02/24 22:30 Temperature Pulse Rate 97 H Respiratory Rate 21 Blood Pressure Pulse Oximetry 98 Oxygen Delivery Method <Vaughn Post, - Last Filed: 10/03/24 00:16> Orders Ordered: Discontinued Medications Acetaminophen (Acetaminophen 325 Mg Tablet) 975 mg PO NOW ONE Stop: 10/02/24 12:34 Last Admin: 10/02/24 13:38 Dose: 975 mg Documented By: Acetaminophen (Acetaminophen 650 Mg Supp) 650 mg DE NOW ONE Stop: 10/02/24 12:34 Last Admin: 10/02/24 13:39 Dose: Not Given Documented By: Acetaminophen (Acetaminophen 325 Mg Tablet) 650 mg PO NOW ONE Stop: 10/02/24 16:24 Last Admin: 10/02/24 16:31 Dose: 650 mg Documented By: Hydromorphone HCl (Hydromorphone 0.5 Mg Inj) 0.5 mg IV NOW ONE Stop: 10/02/24 16:24 Last Admin: 10/02/24 17:20 Dose: Not Given Documented By: Sodium Chloride (Normal Saline 0.9%) 1,000 mls @ 1,000 mls/hr IV BOLUS ONE Stop: 10/02/24 13:31 Last Infusion: 10/02/24 14:26 Dose: Infused Documented By: Infusion: 10/02/24 14:26 Dose: 0 mls/hr Documented By: Admin: 10/02/24 13:38 Dose: 1,000 mls/hr Documented By: Ceftriaxone Sodium 2,000 mg/ (Sodium Chloride) 100 mls @ 200 mls/hr IV NOW ONE Stop: 10/02/24 16:24 Last Infusion: 10/02/24 17:19 Dose: Infused Documented By: Admin: 10/02/24 16:30 Dose: 200 mls/hr Documented By: Ibuprofen (Ibuprofen 400 Mg Tablet) 800 mg PO NOW ONE Stop: 10/02/24 12:34 Last Admin: 10/02/24 15:26 Dose: Not Given Documented By: Morphine Sulfate (Morphine 4 Mg/Ml Inj) 4 mg IV NOW ONE Stop: 10/02/24 22:02 Last Admin: 10/02/24 22:09 Dose: 4 mg Documented By: HAKAN Ondansetron HCl (Ondansetron 4 Mg/2 Ml Inj) 4 mg IV NOW PRN PRN Reason: Nausea And Vomiting Last Admin: 10/02/24 22:50 Dose: 4 mg Documented By: HAKAN Ondansetron HCl (Ondansetron 4 Mg Odt) 4 mg SL NOW PRN PRN Reason: Nausea And Vomiting Vital Signs Vital signs: Vital Signs - 8 hr 10/02/24 16:21 10/02/24 16:24 10/02/24 18:10 Temperature 98.6 F Pulse Rate 100 H 87 Respiratory Rate 18 17 Blood Pressure 110/62 124/68 Pulse Oximetry 94 95 Oxygen Delivery Method Room Air 10/02/24 19:14 10/02/24 19:30 10/02/24 19:39 Temperature Pulse Rate 86 89 91 H Respiratory Rate 16 16 Blood Pressure Pulse Oximetry 95 94 97 Oxygen Delivery Method 10/02/24 19:39 10/02/24 19:54 10/02/24 20:00 Temperature 98.6 F Pulse Rate 84 Respiratory Rate 16 Blood Pressure 127/62 Pulse Oximetry 97 Oxygen Delivery Method 10/02/24 20:00 10/02/24 20:30 10/02/24 21:00 Temperature Pulse Rate 86 86 Respiratory Rate 21 24 Blood Pressure 127/66 Pulse Oximetry 99 98 Oxygen Delivery Method 10/02/24 21:30 10/02/24 22:00 10/02/24 22:00 Temperature Pulse Rate 83 86 Respiratory Rate 11 L 17 Blood Pressure 142/77 H Pulse Oximetry 99 98 Oxygen Delivery Method 10/02/24 22:30 Temperature Pulse Rate 97 H Respiratory Rate 21 Blood Pressure Pulse Oximetry 98 Oxygen Delivery Method Sepsis Evaluation (ED) <Joe Peoples MD - Last Filed: 10/02/24 16:41> Triage Screening Sepsis Screen: Meets SIRS Criteria Level 1 - Infection Sepsis Infection Criteria Present: None <Vaughn Post DO - Last Filed: 10/03/24 00:16> Response It is my opinion that his patient have a likely infectious etiology for meeting sepsis criteria: Does Fluid calculation based on 30 mL/kg within 1hr of criteria: Other Antibiotics initiated within 1 hr of Sepis dx: Yes Tissue Perfusion Reassessed within 6 hrs of infusion start time: Yes Date of Tissue Perfusion Reassessment completed: 10/03/24 Time Tissue Perfusion Reassessment completed: 00:16 MDM - Sepsis <Joe Peoples MD - Last Filed: 10/02/24 16:41> Lab Data Lab results narrative: Leukocytosis is present. Mild elevations in BUN and creatinine as compared with yesterday. Lactic acid normal, procalcitonin is elevated. Has hematuria and bacteriuria but no pyuria seen 10/02/24 13:15 10/02/24 13:15 Labs: Lab Results 10/02/24 10/02/24 Range/Units 13:15 13:22 WBC 14.6 H D (4.5-11.0) X10^3/uL RBC 4.29 (4.0-5.2) X10^6/uL Hgb 13.3 (12.0-16.0) g/dL Hct 39.1 (36-46) % MCV 91.0 (80-100) fL MCH 31.1 (26-34) PG MCHC 34.2 (30-36) % RDW 12.9 (11.6-14.8) % Plt Count 151 (150-400) X10^3/uL Neut % (Auto) 94.7 H (50-75) % Lymph % (Auto) 2.3 L (25-40) % [place] % (Auto) 2.7 L (3-14) % Eos % (Auto) 0.0 L (2-4) % Baso % (Auto) 0.3 (0-2) % Neut # (Auto) 97445 H (7800-8574) /uL Lymph # (Auto) 300 L (2354-3101) /uL [place] # (Auto) 400 (0-900) /uL Eos # (Auto) 0 (0-450) /uL Baso # (Auto) 0 (0-100) /uL PT 11.4 (9.4-12.5) SECONDS INR 1.0 (0.9-1.3) APTT 28 (25.1-36.5) SECONDS Sodium 131 L (137-145) mmol/L Potassium 4.0 (3.4-5.1) mmol/L Chloride 100 (98-107) mmol/L Carbon Dioxide 23 (22-32) mmol/L BUN 18 H (7-17) mg/dL Creatinine 1.22 H (0.52-1.04) mg/dL Estimated GFR 48 L (>60) mL/min BUN/Creatinine Ratio 14.8 (6-22) Glucose 131 H (80-110) mg/dL Lactate 1.2 (0.7-2.1) mmol/L Calcium 9.7 (8.4-10.2) mg/dL Total Bilirubin 1.1 (0.2-1.3) mg/dL AST 37 H (14-36) IU/L ALT 28 (<35) IU/L Alkaline Phosphatase 90 (38-126) U/L Total Protein 6.9 (6.3-8.2) g/dL Albumin 4.1 (3.5-5.0) g/dL Globulin 2.8 (1.7-4.1) g/dL Albumin/Globulin Ratio 1.5 (1.0-2.8) Lipase 66 D (23-300) U/L Procalcitonin 7.22 H (<0.5) ng/mL Urine RBC 5-10/hpf H (0-5/HPF) Urine WBC 1-5/hpf (0-5/HPF) Ur Squamous Epith Cells 1-5 /hpf D (0-5/HPF) Urine Bacteria Few (2-10) H (None) Ur Culture Indicated? Cult not indicated Vol Urine Centrifuged 10ml (spun) Urine Dip Bedside Urine Glucose Negative Bedside Urine Bilirubin - Negative Bedside Urine Ketone ++ 40 Urine Specific [place] 1.020 Bedside Urine Occult Blood +++ Bedside Urine pH 6.0 Bedside Urine Protein + 30 Bedside Urine Urobilinogen - Negative Bedside Urine Nitrite - Negative Bedside Urine Leukocytes - Negative Esterase Imaging Data Chest x-ray: My Impression: Chest x-ray was independently reviewed, no acute finding Radiologist's Impression: Radiologist report was reviewed, no acute findings report ECG Data Interpretation: Sinus tachycardia left bundle-branch block, rate is 110 MDM Narrative Medical decision making narrative: 69-year-old female seen yesterday with abdominal pain and found to have an obstructing ureteral stone and possible UTI. Today she returns with fever and leukocytosis. <Vaughn Post, DO - Last Filed: 10/03/24 00:16> Lab Data Labs: Lab Results 10/02/24 10/02/24 Range/Units 13:15 13:22 WBC 14.6 H D (4.5-11.0) X10^3/uL RBC 4.29 (4.0-5.2) X10^6/uL Hgb 13.3 (12.0-16.0) g/dL Hct 39.1 (36-46) % MCV 91.0 (80-100) fL MCH 31.1 (26-34) PG MCHC 34.2 (30-36) % RDW 12.9 (11.6-14.8) % Plt Count 151 (150-400) X10^3/uL Neut % (Auto) 94.7 H (50-75) % Lymph % (Auto) 2.3 L (25-40) % [place] % (Auto) 2.7 L (3-14) % Eos % (Auto) 0.0 L (2-4) % Baso % (Auto) 0.3 (0-2) % Neut # (Auto) 22488 H (3895-7489) /uL Lymph # (Auto) 300 L (7841-2269) /uL [place] # (Auto) 400 (0-900) /uL Eos # (Auto) 0 (0-450) /uL Baso # (Auto) 0 (0-100) /uL PT 11.4 (9.4-12.5) SECONDS INR 1.0 (0.9-1.3) APTT 28 (25.1-36.5) SECONDS Sodium 131 L (137-145) mmol/L Potassium 4.0 (3.4-5.1) mmol/L Chloride 100 (98-107) mmol/L Carbon Dioxide 23 (22-32) mmol/L BUN 18 H (7-17) mg/dL Creatinine 1.22 H (0.52-1.04) mg/dL Estimated GFR 48 L (>60) mL/min BUN/Creatinine Ratio 14.8 (6-22) Glucose 131 H (80-110) mg/dL Lactate 1.2 (0.7-2.1) mmol/L Calcium 9.7 (8.4-10.2) mg/dL Total Bilirubin 1.1 (0.2-1.3) mg/dL AST 37 H (14-36) IU/L ALT 28 (<35) IU/L Alkaline Phosphatase 90 (38-126) U/L Total Protein 6.9 (6.3-8.2) g/dL Albumin 4.1 (3.5-5.0) g/dL Globulin 2.8 (1.7-4.1) g/dL Albumin/Globulin Ratio 1.5 (1.0-2.8) Lipase 66 D (23-300) U/L Procalcitonin 7.22 H (<0.5) ng/mL Urine RBC 5-10/hpf H (0-5/HPF) Urine WBC 1-5/hpf (0-5/HPF) Ur Squamous Epith Cells 1-5 /hpf D (0-5/HPF) Urine Bacteria Few (2-10) H (None) Ur Culture Indicated? Cult not indicated Vol Urine Centrifuged 10ml (spun) Urine Dip Bedside Urine Glucose Negative Bedside Urine Bilirubin - Negative Bedside Urine Ketone ++ 40 Urine Specific [place] 1.020 Bedside Urine Occult Blood +++ Bedside Urine pH 6.0 Bedside Urine Protein + 30 Bedside Urine Urobilinogen - Negative Bedside Urine Nitrite - Negative Bedside Urine Leukocytes - Negative Esterase MDM Narrative Medical decision making narrative: 69-year-old female seen yesterday with abdominal pain and found to have an obstructing ureteral stone and possible UTI. Today she returns with fever and leukocytosis. 1800: Dr. Post Received sign-out from morning provider, patient is 69-year-old female who presented for persistent pain to the left flank and fever, was seen approximately 2 days ago showing obstructing left ureteral stone approximately 6 mm, patient was sent home with pain control antibiotics however here patient now with a leukocytosis and BRAULIO, call has been placed out to [facility] to discuss case with Urology for transfer. 2104: Discussed case with dr. tsai (urology) states she agrees with need for transfer and that patient needs urgent drain/stenting. Transfer center states will call back to see if they have OR / bed availability 2156: Patient had accepted by Dr. Tsai at [facility] Discharge Plan Departure Patient Disposition: [facility] Clinical Impression: Sepsis, Urolithiasis Prescriptions: No Action estradiol [Estrace] 0.01 % (0.1 mg/gram) cream 1 appful vaginal DAILY Rx Instructions: for 14 days alendronate [Fosamax] 70 mg tablet 70 mg PO QWEEK phenazopyridine [Pyridium] 200 mg tablet 200 mg PO TID 0 Days Qty: 6 0RF hydrocodone-acetaminophen 5-325 mg tablet 1 tab PO Q6H PRN (Reason: pain) Qty: 10 0RF tamsulosin [Flomax] 0.4 mg capsule 0.4 mg PO DAILY Qty: 7 0RF Rx Instructions: administer 30 minutes after same meal each day; swallow whole with liquid; do not crush/chew/dissolve/open ondansetron 4 mg tablet,disintegrating 4 mg PO Q8H PRN (Reason: nausea and vomiting) Qty: 10 0RF cefdinir 300 mg capsule 300 mg PO Q12H Qty: 14 0RF Referrals: Zena Maradiaga MD [Primary Care Provider] -
[2024-10-02] MEDS: cefTRIAXone 2,000 MG in SODIUM CHLORIDE 0.9% 100 ML 200 MG IV (16:30)
[2024-10-02] MEDS: ACETAMINOPHEN 325 MG TABLET 650 MG PO (16:31)
--- NOTE | 2024-10-02 19:30 | PC.NURSE ---
pt resting with eyes closed, arouses easily, assisted up to BSC no c/o pain or discomfort at this time
[2024-10-02] MEDS: MORPHINE 4 MG/ML INJ IV (22:09)
[2024-10-02] MEDS: ONDANSETRON 4 MG/2 ML INJ IV (22:50)
== END 2024-10-02 23:09 | disposition short-term general hospital (02) ==
PROVIDERS: Emergency Medicine; Emergency Provider Student in an Organized Health Care Education/Training Program; PCP Student in an Organized Health Care Education/Training Program
DX: A41.9 Sepsis, unspecified organism (principal); N20.9 Urinary calculus, unspecified; N17.9 Acute kidney failure, unspecified; R00.0 Tachycardia, unspecified; I44.7 Left bundle-branch block, unspecified
CPT/HCPCS: 36415; 71045; 80053; 81003; 81015; 83605; 83690; 84145; 85025; 85610; 85730; 87040; 93005; 96361; 96365; 96375; 99284; 99285; J0696; J2270; J2405

== ENCOUNTER → 2024-11-01 13:31 | Outpatient (CLI) | payer MEDICARE, OTHER, SELFPAY ==
[2024-11-01 14:10] LABS: Appearance Urine UA CLEAR; Bilirubin Urine UA NEGATIVE (NEGATIVE); Color Urine UA ORANGE; Glucose Urine UA TRACE g/dL (Negative); Ketones Urine UA NEGATIVE (NEGATIVE); Leukocyte Esterase Urine UA 1+ (NEGATIVE); Nitrite Urine UA POSITIVE (Negative); Occult Blood Urine UA NEGATIVE (Negative); Protein Urine UA TRACE (Negative); Specific Gravity Urine UA <=1.005 (1.000-1.035)
[2024-11-01 14:29] LABS: pH Urine UA 6.5 (4.5-8.0)
[2024-11-01 14:30] LABS: Bacteria Urine Few (2-10); Culture Indicated Urine Specimen Cultured; RBC Urine None Seen (0-5/HPF); Squamous Epithelial Cell Urine 5-10 /HPF (0-5/HPF); Urine Volume 10mL (spun); WBC Urine 5-10/HPF (0-5/HPF)
== END ==
PROVIDERS: PCP Student in an Organized Health Care Education/Training Program; Referring Provider Nurse Practitioner; Visit Provider Nurse Practitioner
DX: N20.0 Calculus of kidney (principal)
CPT/HCPCS: 81001; 87086

== ENCOUNTER → 2024-12-08 13:08 | Outpatient (CLI) | payer MEDICARE, OTHER, SELFPAY ==
[2024-12-08 17:03] LABS: Appearance Urine UA CLOUDY; Bilirubin Urine UA NEGATIVE (NEGATIVE); Color Urine UA YELLOW; Glucose Urine UA NEGATIVE (Negative); Ketones Urine UA NEGATIVE (NEGATIVE); Leukocyte Esterase Urine UA 2+ (NEGATIVE); Nitrite Urine UA NEGATIVE (Negative); Occult Blood Urine UA 3+ (Negative); Protein Urine UA 2+ (Negative); Specific Gravity Urine UA 1.015 (1.000-1.035); Urobilinogen Urine UA 0.2 E.U./dL (0.2)
[2024-12-08 17:07] LABS: pH Urine UA 6.5 (4.5-8.0)
[2024-12-08 17:17] LABS: Bacteria Urine Moderate (10-30); RBC Urine 5-10/HPF (0-5/HPF); Urine Volume 10mL (spun); WBC Urine 5-10/HPF (0-5/HPF)
[2024-12-08 17:18] LABS: Amorphous Sediment Urine 1+; Culture Indicated Urine Specimen Cultured; Squamous Epithelial Cell Urine 1-5 /HPF (0-5/HPF)
== END ==
LOC: LAB 13:09
PROVIDERS: PCP Student in an Organized Health Care Education/Training Program; Referring Provider Physician Assistant Surgical; Visit Provider Physician Assistant Surgical
DX: N20.0 Calculus of kidney (principal)
CPT/HCPCS: 81001; 87086

== ENCOUNTER → 2024-12-15 07:51 | Outpatient (CLI) | payer MEDICARE, OTHER, SELFPAY ==
--- NOTE | 2024-12-15 07:54 | DI.ECHO.S_ITS ---
[facility] : : [address] : : [place] : : [id number] : : Phone: [phone] Echocardiogram Report + + :Name: BRUNO DUPREE Study Date: 12/15/2024 Height: 68 in : :Hospital ReadingLocation: Weight: 175 lb : : Gender: Female BSA: 1.9 m2 : :: 1955 Age: 69 yrs BP: 148/98 mmHg: :Reason For Study: HEART MURMUR : :Ordering Physician: DONIS ADAMS : :JOSAFAT Performed By: Fannie Haney : :Referring: DONIS ADAMS : + + Interpretation Summary 1. The left ventricular contractility is normal. Estimate ejection fraction is greater than 60% with no segmental wall motion abnormalities. No LVH. No diastolic dysfunction. 2. The right ventricular contractility is normal. 3. All cardiac chambers are of normal size. 4. Trace to mild mitral regurgitation. 5. No obvious intracardiac shunts. 6. No obvious intracardiac masses nor thrombi. 7. No hemodynamically significant pericardial effusion. 8. Normal right-sided filling pressures. Conclusion: Normal biventricular function with no severe valvular abnormalities. Procedure: A two-dimensional transthoracic echocardiogram with color flow and Doppler was performed. The study quality was technically adequate. There is no prior echocardiogram noted for this patient. Left Ventricle: The left ventricle is normal in size and wall thickness. The ejection fraction is estimated to be 60-65%. Diastolic parameters suggest probable normal left ventricular diastolic function and normal filling pressures. Right Ventricle: The right ventricle is normal in size and function. Atria: The left atrial size is normal. Right atrial size is normal. There is no Doppler evidence for an interatrial shunt. Mitral Valve: The mitral valve leaflets appear to open well. There is no mitral valve stenosis. There is mild mitral regurgitation. Aortic Valve: The aortic valve is trileaflet. The aortic valve opens well. There is no aortic valve stenosis. No aortic regurgitation is present. Tricuspid Valve: The tricuspid valve leaflets are thin and pliable. There is trace tricuspid regurgitation. The right ventricular systolic pressure is estimated to be at least 27 mmHg based on an estimated right atrial pressure of 3 mm Hg. Pulmonic Valve: The pulmonic valve is not well seen, but is grossly normal. There is no pulmonic valvular regurgitation. Great Vessels: The aortic root is normal size. The dimensions of the ascending aorta are normal. The IVC is dilated (diameter is greater than 2.1 cm) yet it collapses greater than 50% with a sniff. This suggests a right atrial pressure of 8 mm Hg. Pericardium/ Pleura There is no pericardial effusion. There is no pleural effusion. MMode/2D Measurements & Calculations LVIDd: 4.2 cm LVOT diam: 1.9 cm LVIDs: 2.8 cm Ao root diam: 3.2 cm FS: 32.7 % asc Aorta Diam: 3.3 cm EPSS: 0.19 cm Ao Arch Diam (Prox Trans): 2.4 cm IVSd: 1.1 cm LVPWd: 0.75 cm LV malik. diameter/BSA (cm/m^2): 2.2 LV sys. diameter/BSA (cm/m^2): 1.5 LA A2 area: 19.2 cm2 RA long axis: 5.6 cm LA A4 area: 19.6 cm2 RA area: 18.0 cm2 LA length (vol): 5.5 cm RA vol: 49.4 ml LA vol: 58.0 ml RA : 25.6 ml/m2 LA vol index: 30.0 ml/m2 IVC diam: 2.1 cm RVD1 (basal): 3.7 cm RVD2 (mid): 2.8 cm TAPSE: 1.9 cm Doppler Measurements & Calculations Ao V2 max: 160.3 cm/sec LVOT Max Duran: 136.6 cm/sec Ao V2 mean: 107.2 cm/sec LV V1 max P.5 mmHg Ao max P.0 mmHg LV V1 VTI: 29.7 cm Ao mean P.3 mmHg LOE(I,D): 2.6 cm2 Ao V2 VTI: 33.5 cm LEO(V,D): 2.5 cm2 sev ratio: 0.89 LEO indexed to BSA (cm^2/m^2): 1.3 MV E max duran: 95.1 cm/sec TR max duran: 221.2 cm/sec MV A max duran: 88.7 cm/sec TR max P.6 mmHg MV E/A: 1.1 PA pr(Accel): 16.1 mmHg Med Peak E' Duran: 7.7 cm/sec E/E' med: 12.4 Lat Peak E' Duran: 9.4 cm/sec E/E' lat: 10.1 E/e' average: 11.2 MV dec time: 0.13 sec MVA(VTI): 2.7 cm2 MV V2 mean: 73.2 cm/sec SV(LVOT): 85.9 ml MV mean P.3 mmHg MV V2 VTI: 32.0 cm Reading Physician:ADELAIDE
== END ==
PROVIDERS: PCP Student in an Organized Health Care Education/Training Program; Referring Provider Internal Medicine Cardiovascular Disease; Visit Provider Internal Medicine Cardiovascular Disease
DX: I34.0 Nonrheumatic mitral (valve) insufficiency (principal); R01.1 Cardiac murmur, unspecified
CPT/HCPCS: 93306

== ENCOUNTER → 2025-03-06 15:23 | Outpatient (CLI) | payer MEDICARE, OTHER, SELFPAY ==
--- NOTE | 2025-03-06 15:24 | DI.US.S_ITS ---
PROCEDURE: US RENAL COMPLETE INDICATIONS: NEPHRLITHLASIS TECHNIQUE: Real-time scanning was performed of the kidneys and bladder, with image documentation. COMPARISON: [facility], CT, CT ABDOMEN PELVIS W CON, 10/01/2024, 8:47. FINDINGS: Kidneys: Kidneys are normal in size. Right kidney measures 11.8 cm long; left kidney measures 11.7 cm long. Right renal cortical thickness is 1.1 cm; left renal cortical thickness is 2.6 cm. Renal cortical echotexture is normal. No hydronephrosis. Bilateral kidney stones. A stone on the right measuring 5 mm and a stone on the left measuring 4 mm. No suspicious solid mass lesions. Bladder: Pre-void bladder volume is 333 mL. Post-void residual is 4 mL. Pre- void images demonstrate no intraluminal masses or stones. On pre-void images, both ureteral jets are noted with color Doppler interrogation. (Of note, ureteral jets may not be detectable in up to 25% of cases due to insufficient differences in specific gravity between ureteral and bladder urine). Miscellaneous: No free pelvic fluid. IMPRESSION: 1. No hydronephrosis. 2. Bilateral nonobstructing kidney stones. 3. No significant postvoid residual. Dictated by: Mack Flores M.D. on 03/06/2025 at 23:21 Approved by: Mack Flores M.D. on 03/06/2025 at 23:24
--- NOTE | 2025-03-06 15:51 | DI.RAD.S_ITS ---
PROCEDURE: XR ABDOMEN 1V INDICATIONS: NEPHRLITHLASIS TECHNIQUE: One view of the abdomen acquired. COMPARISON: None. FINDINGS: Surgical changes and devices: None. Bowel: Bowel gas pattern is normal. Soft tissues: No suspicious abdominal calcifications. Visualized solid organ contours appear normal in size. Bones: No suspicious bony lesions. IMPRESSION: No evidence of nephrolithiasis, although the renal shadows are largely obscured by overlying bowel gas Approved by: Chavo Palma M.D. on 03/07/2025 at 13:20
== END ==
PROVIDERS: Referring Provider Nurse Practitioner; Visit Provider Nurse Practitioner
DX: N20.0 Calculus of kidney (principal)
CPT/HCPCS: 74018; 76770

== ENCOUNTER → 2025-04-27 09:51 | Outpatient (CLI) | payer MEDICARE, OTHER, SELFPAY ==
--- NOTE | 2025-04-27 09:55 | DI.RAD.S_ITS ---
PROCEDURE: XR DEXA AXIAL SKELETON INDICATIONS: osteoporosis screening COMPARISON: [facility], CR, XR DEXA AXIAL SKELETON, 04/23/2023, 10:52. FINDINGS: Lumbar Spine: Bone mineral density 1.102 (previously 1.025) g/cm2, T score 0.6 (previously -0.1). Left Femoral Neck: Bone mineral density 0.569 (previously 0.561) g/cm2, T score -2.5 (previously -2.6). Left Hip: Bone mineral density 0.717 (previously 0.711) g/cm2, T score -1.8 (previously -1.9). Fracture Risk Calculation (when applicable): 10-year fracture risk of a major osteoporotic fracture 15 percent and of a hip fracture 3.7 percent. (T score greater or equal to -1.0 to: NORMAL) (T score from -1.1 to -2.4: OSTEOPENIA) (T score less than or equal to -2.5: OSTEOPOROSIS) IMPRESSION: Osteoporosis--- recommend repeat DEXA in 2 years or less for reassessment of response to treatment. Follow-up guidelines as follows: Osteoporosis: Consider a repeat DEXA and Vertebral Fracture Assessment (VFA) exam in 2 years or sooner if medically necessary, to reassess this patient's status. Osteopenia: Consider a repeat DEXA in 2-3 years to reassess this patient's status, or if there is a new clinical indication. Normal: Consider a repeat DEXA in 5 years or sooner, or if there is a new clinical indication. All treatment decisions require clinical judgment and consideration of individual patient factors, including patient preferences, comorbidities, previous drug use, risk factors not captured in the FRAX model (e.g., frailty, falls, vitamin D deficiency, increased bone turnover, interval significant decline in bone density ) and possible under- or over-estimation of fracture risk by FRAX. In addition, the NOF Guide recommends that FDA-approved medical therapies be considered in postmenopausal women and men age >= 50 years with a: * Hip or vertebral (clinical or morphometric) fracture * T-score of <=-2.5 at the spine or hip * Ten-year fracture probability by FRAX of >= 3% for hip fracture or >=20% for major osteoporotic fracture. Dictated by: Mark Friedman M.D. on 04/27/2025 at 19:47 Approved by: Mark Friedman M.D. on 04/27/2025 at 19:50
== END ==
LOC: RAD 09:54
PROVIDERS: Referring Provider Student in an Organized Health Care Education/Training Program; Visit Provider Student in an Organized Health Care Education/Training Program
DX: M81.0 Age-related osteoporosis without current pathological fracture (principal)
CPT/HCPCS: 77080

== ENCOUNTER 2025-05-03 04:56 | Emergency (ER) | payer MEDICARE, OTHER, SELFPAY ==
--- NOTE | 2025-05-03 05:04 | EKG_ITS ---
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
[2025-05-03 05:05] VITALS: BP 174/93; PULSE 121; RESP 18; TEMP 37.5; O2SAT 97; BMI 26.6
--- NOTE | 2025-05-03 05:17 | ED_ITS ---
HPI - General Adult General Chief complaint: Abdominal Pain Stated complaint: Urinary Symptoms, Sore Throat, Back Pain, Fever Time Seen by Provider: 05/03/25 05:17 History of Present Illness HPI narrative: 69-year-old female history of kidney stones osteoporosis presents this evening with fever of 101 chills body aches congestion low back pain and urinary frequency for which she took Tylenol and Sudafed prior to arrival. She had a history of kidney stones that required stent placement in the process she became septic and as a result today wanted to be proactive and come in to be evaluated. She was exposed this past weekend to friends whereby there were 2 sick individuals in the household but she did not know what the diagnosis is were or what their symptoms were exactly. Patient denies chest pain, shortness of breath, dyspnea on exertion, leg pain, leg swelling, nausea, vomiting, diarrhea. Other than what is stated 14 point review of system is negative. Related Data Home Medications ?Medication ?Instructions ?Recorded ?Confirmed alendronate 70 mg tablet (Fosamax) 70 mg PO QWEEK 01/0803/20/22 estradiol 0.01% (0.1 mg/gram) 1 appful vaginal DAILY 0 01/25/22 03/20/22 vaginal cream (Estrace) Previous Rx's ?Medication ?Instructions ?Recorded phenazopyridine 200 mg tablet 200 mg PO TID 6 doses #6 tabs 03/20/22 (Pyridium) cefdinir 300 mg capsule 300 mg PO Q12H #14 caps 09/11 10/04 hydrocodone 5 mg-acetaminophen 325 1 tab PO Q6H PRN pa in #10 tabs 10/01/24 mg tablet ondansetron 4 mg disintegrating 4 mg PO Q8H PRN nausea and 10/01/24 tablet vomiting #10 tabs tamsulosin 0.4 mg capsule (Flomax) 0.4 mg PO DAILY #7 caps 10/01/24 nirmatrelvir 150 mg (10)-ritonavir See Rx Instructions PO .COMPLEX 05/03/25 100 mg (10) tablets in a dose pack #20 ea (Paxlovid) nitrofurantoin 100 mg PO Q12H 5 days #10 ca ps 05/03/25 monohydrate/macrocrystals 100 mg capsule (Macrobid) Allergies Allergy/AdvReac Type Severity Reaction Status Date / Time oxycodone Allergy Mild Rash Verified 03/20/22 18:49 Review of Systems Review of Systems ROS Unobtainable: All systems reviewed & are unremarkable except as noted in HPI and below Exam Narrative Exam Narrative: GENERAL: [69] year old patient appears stated age. Well-developed patient, in mild distress. HEAD: Atraumatic. Normocephalic. EYES: Pupils equal round and reactive. Extraocular motions intact. No scleral icterus. No injection or drainage. ENT: Nose without bleeding, purulent drainage. Throat without erythema, tonsillar hypertrophy or exudate. Airway patent. NECK: Trachea midline. Non tender CARDIOVASCULAR: Tachycardic Regular rate and rhythm without murmurs, gallops, or rubs. RESPIRATORY: Clear to auscultation. Breath sounds equal bilaterally. No wheezes, rales, or rhonchi. GASTROINTESTINAL: Abdomen soft, non-tender, nondistended. EXTREMITIES: No edema or joint tenderness. BACK: Nontender without deformity or crepitance. No flank tenderness. NEURO: AOx3. SKIN: No rash or erythema of visible areas Initial Vital Signs Initial Vital Signs: Vital Signs Temperature 99.5 F 05/03/25 05:05 Pulse Rate 121 H 05/03/25 05:05 Respiratory Rate 18 05/03/25 05:05 Blood Pressure 174/93 H 05/03/25 05:05 Pulse Oximetry 97 05/03/25 05:05 Oxygen Delivery Method Room Air 05/03/25 05:05 Course Orders Ordered: ED Orders 05/03/25 05:04 EKG-12 Lead Stat 05/03/25 05:15 Complete Blood Count AUTO DIFF Stat Comprehensive Metabolic Panel Stat Lactate (Lactic Acid) Stat Lipase Stat 05/03/25 05:20 Covid-19 + FLU A/B + RSV - PCR Stat 05/03/25 05:27 CT abdomen pelvis w con Stat CXR [XR chest 2V] Stat 05/03/25 05:44 Urine Microscopic Stat 05/03/25 06:00 Blood Culture Stat Ondansetron HCl (Ondansetron 4 Mg/2 Ml Inj) 4 mg IV NOW PRN PRN Reason: Nausea And Vomiting Ondansetron HCl (Ondansetron 4 Mg Odt) 4 mg PO NOW PRN PRN Reason: Nausea And Vomiting Discontinued Medications Lactated Ringer's (Lactated Ringers) 1,000 mls @ 1,000 mls/hr IV BOLUS ONE Stop: 05/03/25 06:25 Last Admin: 05/03/25 06:03 Dose: 1,000 mls/hr Documented By: RMF Ceftriaxone Sodium 2,000 mg/ (Sodium Chloride) 100 mls @ 200 mls/hr IV NOW ONE Stop: 05/03/25 05:27 Last Admin: 05/03/25 06:03 Dose: 200 mls/hr Documented By: PATRIC Lactated Ringer's (Lactated Ringers) 1,000 mls @ 1,000 mls/hr IV BOLUS ONE Stop: 05/03/25 06:27 Last Admin: 05/03/25 06:03 Dose: 1,000 mls/hr Documented By: PATRIC Vital Signs Vital signs: Vital Signs - 8 hr 05/03/25 05:05 05/03/25 05:30 05/03/25 06:16 Temperature 99.5 F Pulse Rate 121 H 100 H Respiratory Rate 18 15 Blood Pressure 174/93 H 150/75 H Pulse Oximetry 97 98 Oxygen Delivery Method Room Air Medical Decision Making Lab Data 05/03/25 05:15 05/03/25 05:15 Labs: Lab Results 05/03/25 05/03/25 Range/Units 05:15 05:20 WBC 5.7 (4.5-11.0) X10^3/uL RBC 4.66 (4.0-5.2) X10^6/uL Hgb 14.4 (12.0-16.0) g/dL Hct 42.1 (36-46) % MCV 90.4 (80-100) fL MCH 30.8 (26-34) PG MCHC 34.1 (30-36) % RDW 13.1 (11.6-14.8) % Plt Count 207 (150-400) X10^3/uL Neut % (Auto) 79.5 H (50-75) % Lymph % (Auto) 10.0 L (25-40) % Hernando % (Auto) 6.9 (3-14) % Eos % (Auto) 3.1 (2-4) % Baso % (Auto) 0.5 (0-2) % Neut # (Auto) 4500 (7591-7391) /uL Lymph # (Auto) 600 L (8352-3044) /uL Hernando # (Auto) 400 (0-900) /uL Eos # (Auto) 200 (0-450) /uL Baso # (Auto) 0 (0-100) /uL Sodium 135 L (137-145) mmol/L Potassium 3.8 (3.4-5.1) mmol/L Chloride 103 (98-107) mmol/L Carbon Dioxide 24 (22-32) mmol/L BUN 11 (7-17) mg/dL Creatinine 0.61 (0.52-1.04) mg/dL Estimated GFR > 60 (>60) mL/min BUN/Creatinine Ratio 18.0 (6-22) Glucose 120 H (70-99) mg/dL Lactate 0.8 (0.7-2.1) mmol/L Calcium 10.4 H (8.4-10.2) mg/dL Total Bilirubin 0.8 (0.2-1.3) mg/dL AST 27 (14-36) IU/L ALT 21 (<35) IU/L Alkaline Phosphatase 101 (38-126) U/L Total Protein 7.8 (6.3-8.2) g/dL Albumin 4.7 (3.5-5.0) g/dL Globulin 3.1 (1.7-4.1) g/dL Albumin/Globulin Ratio 1.5 (1.0-2.8) Lipase 117 (23-300) U/L SARS-CoV-2 (PCR) Positive H (Negative) Influenza A (RT-PCR) Flu a negative (NEGATIVE) Influenza B (RT-PCR) Flu b negative (NEGATIVE) RSV (PCR) Negative (Negative) Urine Dip Bedside Urine Glucose Negative Bedside Urine Bilirubin - Negative Bedside Urine Ketone - Negative Urine Specific Howell 1.015 Bedside Urine Occult Blood + Bedside Urine pH 6.5 Bedside Urine Protein - Negative Bedside Urine Urobilinogen - Negative Bedside Urine Nitrite - Negative Bedside Urine Leukocytes - Negative Esterase Point of care testing: Urine Dip Bedside Urine Glucose Negative Bedside Urine Bilirubin - Negative Bedside Urine Ketone - Negative Urine Specific Howell 1.015 Bedside Urine Occult Blood + Bedside Urine pH 6.5 Bedside Urine Protein - Negative Bedside Urine Urobilinogen - Negative Bedside Urine Nitrite - Negative Bedside Urine Leukocytes - Negative Esterase ECG Data Interpretation: Sinus Tach HR 112 CT 184 QRS [address]-t wave change Unchanged from 10/02/24 MDM Narrative Medical decision making narrative: Vital signs, nurse triage note, medication list, previous ER visits, and all imaging studies reviewed. UA showed negative nitrites, negative leukocyte esterase, positive occult blood, negative ketones negative bilirubin and negative glucose. WBC 5.7 hemoglobin 14.4 platelet 207 left shift sodium 135 potassium 3.8 chloride 103 CO2 24 BUN 11 creatinine 0.61 glucose 120 lactic acid 0.8 LFTs normal lipase 117. Pt given LR 1L bolus x 2, Rocephin 2g IV x1. Ct abd pelvis and cxr pending. Chest x-ray showed not show any acute process. CT abdomen and pelvis showed diffuse bladder wall thickening nonspecific but can be seen in cystitis. Mild bilateral hydronephrosis very versus peripelvic cysts dilated extrarenal pelvises. Nonobstructing bilateral nephrolithiasis. DC home on Macrobid and Paxlovid. Discharge Plan Departure Patient Disposition: Home Clinical Impression: Acute COVID-19, Cystitis Instructions: DI for COVID-19 (Suspected or Confirmed ) Activity Restrictions/Additional Instructions: Return with new or worsening symptoms. Keep hydrated. Alternate Tylenol or ibuprofen for fever and pain control. Follow up with PCP in 1-2 weeks if no improvement in symptoms. Prescriptions: New nitrofurantoin monohyd/m-cryst [Macrobid] 100 mg capsule 100 mg PO Q12H 5 Days Qty: 10 0RF Rx Instructions: must administer with a meal/food Paxlovid 150 mg (10)- 100 mg (10) tablets,dose pack See Rx Instructions .ROUTE .COMPLEX Qty: 20 0RF Rx Instructions: orally per package directions No Action estradiol [Estrace] 0.01 % (0.1 mg/gram) cream 1 appful vaginal DAILY Rx Instructions: for 14 days alendronate [Fosamax] 70 mg tablet 70 mg PO QWEEK phenazopyridine [Pyridium] 200 mg tablet 200 mg PO TID 0 Days Qty: 6 0RF hydrocodone-acetaminophen 5-325 mg tablet 1 tab PO Q6H PRN (Reason: pain) Qty: 10 0RF tamsulosin [Flomax] 0.4 mg capsule 0.4 mg PO DAILY Qty: 7 0RF Rx Instructions: administer 30 minutes after same meal each day; swallow whole with liquid; do not crush/chew/dissolve/open ondansetron 4 mg tablet,disintegrating 4 mg PO Q8H PRN (Reason: nausea and vomiting) Qty: 10 0RF cefdinir 300 mg capsule 300 mg PO Q12H Qty: 14 0RF Stand Alone Forms: Patient Portal/API
--- NOTE | 2025-05-03 05:27 | DI.RAD.S_ITS ---
PROCEDURE: XR CHEST 2V INDICATIONS: fever chills bodyache congestion TECHNIQUE: 2 views of the chest were acquired. COMPARISON: None. FINDINGS: Surgical changes and devices: None. Lungs and pleura: Lungs are clear. No pleural effusions or pneumothorax. Mediastinum: Mediastinal contours are normal. Heart size is normal. Bones and chest wall: No suspicious bony abnormalities. Soft tissues appear unremarkable. IMPRESSION: No acute cardiopulmonary abnormality is seen. There is no significant discrepancy when compared to the overnight preliminary report. Approved by: Aj Neri M.D. on 05/03/2025 at 8:46
--- NOTE | 2025-05-03 05:27 | DI.CT.S_ITS ---
PROCEDURE: CT ABDOMEN PELVIS W CON INDICATIONS: low back pain, fever, urinary frequency TECHNIQUE: After the administration of intravenous contrast, axial sections acquired from the lung bases to the pubic symphysis. Coronal and sagittal reformats were performed. For radiation dose reduction, the following was used: automated exposure control, adjustment of mA and/or kV according to patient size. COMPARISON: [facility], CT, CT ABDOMEN PELVIS W CON, 10/01/2024, 8:47. FINDINGS: Image quality: Diagnostic. Lower Chest: No significant findings. ABDOMEN: Liver: No solid mass. Stable hypoattenuating lesions in the liver, likely cysts. Gallbladder: No radiopaque gallstones or wall thickening. Biliary ducts: No biliary dilation. Pancreas: No ductal dilation. Spleen: Size is within normal limits. Adrenal Glands: No adrenal nodules. Kidneys and Ureters: Multiple bilateral small nonobstructing renal calculi measuring up to 4 mm. There is mild fullness of the bilateral renal pelvises and proximal ureters without an obstructing lesion seen. No hydronephrosis. No solid mass. No complex renal cystic lesion which requires follow up. Stomach and Bowel: Normal appendix. Peritoneum: No abnormal intraperitoneal fluid. No free air. Ventral Wall: No significant ventral hernia. Abdominal Nodes: No retroperitoneal or mesenteric adenopathy by size criteria. Vessels: Aorta and inferior vena cava are normal in size. PELVIS: Pelvic Organs: Unremarkable. Bladder: Diffuse bladder wall thickening. No bladder calculus. Pelvic Nodes: No enlarged lymph nodes. Miscellaneous: No inguinal hernias are seen. Bones: No aggressive osseous abnormality. Multilevel degenerative changes in the included spine. Mild chronic wedging deformity at the L1 vertebral body appears unchanged. Grade 1 anterolisthesis of L4 on L5 secondary to facet hypertrophy with associated spinal canal narrowing. IMPRESSION: 1. Diffuse bladder wall thickening is nonspecific but can be seen with cystitis. Recommend correlation with clinical findings and urinalysis. 2. Mild bilateral hydronephrosis versus extrarenal pelvises. No obstructing lesion is seen. Findings could be related to ascending infection versus congenital variation or an intrathecally lesion. Follow-up CT urogram could be performed for further evaluation if indicated clinically. 3. Multiple bilateral small nonobstructing renal calculi. There is no significant discrepancy when compared to the overnight preliminary report. Approved by: Aj Neri M.D. on 05/03/2025 at 8:44
[2025-05-03 05:28] LABS: Add Manual Diff / Slide Review NO; Hematocrit 42.1 % (36-46); Hemoglobin 14.4 g/dL (12.0-16.0); Lymphocytes Absolute Auto 600 /uL (1100-4500); Mean Corpuscular HGB Conc 34.1 % (30-36); Mean Corpuscular Hemoglobin 30.8 PG (26-34); Mean Corpuscular Volume 90.4 fL (80-100); Platelet Count 207 X10^3/uL (150-400)
[2025-05-03 05:30] VITALS: BP 150/75
[2025-05-03 05:43] LABS: Alanine Aminotransferase 21 IU/L (<35); Albumin 4.7 g/dL (3.5-5.0); Albumin Globulin Ratio 1.5 (1.0-2.8); Alkaline Phosphatase 101 U/L (38-126); Blood Urea Nitrogen 11 mg/dL (7-17); Calcium 10.4 mg/dL (8.4-10.2); Carbon Dioxide 24 mmol/L (22-32); Chloride 103 mmol/L (98-107); Estimated Glomerular Filt Rate > 60 mL/min (>60); Globulin 3.1 g/dL (1.7-4.1); Glucose 120 mg/dL (70-99); HEMOLYSIS < 15 (0-50); Lipase 117 U/L (23-300); Potassium 3.8 mmol/L (3.4-5.1); Sodium 135 mmol/L (137-145); Total Protein 7.8 g/dL (6.3-8.2)
[2025-05-03 05:45] LABS: Lactate (Lactic Acid) 0.8 mmol/L (0.7-2.1)
[2025-05-03] MEDS: cefTRIAXone 2,000 MG in SODIUM CHLORIDE 0.9% 100 ML 200 MG IV (06:03)
[2025-05-03] MEDS: LACTATED RINGERS 1,000 ML 1000 ML IV ×2 (06:03)
[2025-05-03 06:16] VITALS: PULSE 100; RESP 15; O2SAT 98
[2025-05-03 06:22] LABS: Influenza A - CEPHEID Flu A NEGATIVE (NEGATIVE); Influenza B - CEPHEID Flu B NEGATIVE (NEGATIVE)
[2025-05-03 06:24] LABS: COVID-19 CEPHEID 4-PLEX PCR POSITIVE (Negative)
[2025-05-03 06:30] VITALS: PULSE 99; RESP 32; O2SAT 97
[2025-05-03 06:56] LABS: Culture Indicated Urine Cult Not Indicated
[2025-05-03 07:00] VITALS: PULSE 116; RESP 25
[2025-05-03 07:01] VITALS: BP 155/70; PULSE 102; RESP 21
== END 2025-05-03 07:06 | disposition home or self-care (01) ==
PROVIDERS: Emergency Provider Family Medicine
DX: U07.1 COVID-19 (principal); N30.90 Cystitis, unspecified without hematuria; Z87.442 Personal history of urinary calculi
CPT/HCPCS: 36415; 71046; 74177; 80053; 81003; 81015; 83605; 83690; 85025; 87040; 87637; 93005; 99284; J0696; Q9967